=== PATIENT | female | born 1940 | race Caucasian/White ===

== ENCOUNTER → 2016-08-24 | Outpatient (CLI) | payer OTHER ==
[~2016-08-24] MED LIST: Diabeta,Micron2.5 MG PO; EFFEXOR XR75 MG PO; NAPROSYN500 MG PO; PRAVACHOL40 MG PO
[2016-08-24 09:27] LABS: BASO # 0.1 10*3/uL (0.0-0.1); BASO % 0.9 % (0.0-1.0); EOS # 0.3 10*3/uL (0.0-0.4); EOS % 3.3 % (1.0-4.0); HEMATOCRIT 45.6 % (37.0-47.0); HEMOGLOBIN 14.8 g/dl (12.0-16.0); LYMPH # 2.5 10*3/uL (1.3-4.4); LYMPH % 31.2 % (27.0-41.0); MEAN CELL VOLUME 94.2 fl (81.0-99.0); MEAN CORPUSCULAR HGB 30.6 pg (27.0-31.0); MEAN CORPUSCULAR HGB CONC 32.5 g/dl (33.0-37.0); MEAN PLATELET VOLUME 9.8 fl (9.6-12.3); MONO # 0.7 10*3/uL (0.1-1.0); MONO % 8.1 % (3.0-9.0); NEUT # 4.5 10*3/uL (2.3-7.9); NEUT % 56.1 % (47.0-73.0); PLATELET COUNT AUTOMATED 259 10*3/uL (130-400); RED BLOOD COUNT 4.84 10*6/uL (4.10-5.10)
[2016-08-24 10:19] LABS: ALBUMIN 3.7 gm/dl (3.1-4.5); ALKALINE PHOSPHATASE 53 U/L (45-117); BILIRUBIN, DIRECT < 0.1 mg/dL (0.0-0.2); BILIRUBIN, TOTAL 0.4 mg/dl (0.2-1.0); BUN 14 mg/dl (7-24); CARBON DIOXIDE 26 mmol/L (21-32); CHLORIDE 109 mmol/L (98-107); EST GLOM FILT AFRICAN AMERICAN > 60 ml/min; GLUCOSE 156 mg/dL (65-99); PHOSPHOROUS 3.9 mg/dL (2.5-4.9); POTASSIUM 4.5 mmol/L (3.5-5.1); SGOT/AST 19 IU/L (3-35); SGPT/ALT 20 U/L (12-78); SODIUM 143 mmol/L (136-145); TOTAL PROTEIN 7.3 gm/dL (6.4-8.2)
[2016-08-24 10:54] LABS: HEMOGLOBIN A1c 6.6 % (4.8-5.6)
== END | disposition home or self-care (01) ==
LOC: LAB 09:04
PROVIDERS: Internal Medicine
DX: E11.9 Type 2 diabetes mellitus without complications (principal); J44.9 Chronic obstructive pulmonary disease, unspecified; I10 Essential (primary) hypertension

== ENCOUNTER 2016-12-13 15:10 | Emergency (ER) | payer OTHER ==
[~2016-12-13] VITALS: Ht 152.4 cm; Wt 39.9 kg
[2016-12-13 15:18] VITALS: BP 136/74
[2016-12-13] MEDS ORDERED: ALENDRONATE SOD70 M1 PO (15:20)
[2016-12-13] MEDS ORDERED: HYDROCODONE BIT1 T20 PO (15:20)
[2016-12-13] MEDS ORDERED: CITALOPRAM10 MG PO (15:20)
[2016-12-13] MEDS ORDERED: NAPROSYN500 MG PO (15:26)
== END 2016-12-13 15:59 | disposition home or self-care (01) ==
LOC: ED 15:10
DX: S52.501A Unspecified fracture of the lower end of right radius, initial encounter for closed fracture (principal); R03.0 Elevated blood-pressure reading, without diagnosis of hypertension; Z90.710 Acquired absence of both cervix and uterus; Z90.89 Acquired absence of other organs; Z79.899 Other long term (current) drug therapy; W17.89XA Other fall from one level to another, initial encounter; Y93.89 Activity, other specified; Y92.009 Unspecified place in unspecified non-institutional (private) residence as the place of occurrence of the external cause; Y99.9 Unspecified external cause status

== ENCOUNTER → 2017-03-19 | Outpatient (CLI) | payer OTHER ==
[~2017-03-19] MED LIST changes: +ALENDRONATE SOD70 M1 PO; +CITALOPRAM10 MG PO; +HYDROCODONE BIT1 T20 PO
[2017-03-19 10:08] LABS: HEMOGLOBIN A1c 7.7 % (4.8-5.6)
[2017-03-19 10:21] LABS: ALBUMIN 3.5 gm/dl (3.1-4.5); ALKALINE PHOSPHATASE 72 U/L (45-117); BILIRUBIN, DIRECT < 0.1 mg/dL (0.0-0.2); BILIRUBIN, TOTAL 0.3 mg/dl (0.2-1.0); BUN 13 mg/dl (7-24); CARBON DIOXIDE 26 mmol/L (21-32); CHLORIDE 106 mmol/L (98-107); CHOLESTEROL 193 mg/dL (<200); EST GLOM FILT AFRICAN AMERICAN > 60 ml/min; FREE T4 1.16 ng/dl (0.76-1.46); GLUCOSE 173 mg/dL (65-99); HDL CHOLESTEROL 35 mg/dl (40-60); LDL CHOLESTEROL 118 mg/dL (9-159); PHOSPHOROUS 4.7 mg/dL (2.5-4.9); POTASSIUM 3.9 mmol/L (3.5-5.1); SGOT/AST 17 IU/L (3-35); SGPT/ALT 20 U/L (12-78); SODIUM 139 mmol/L (136-145); TOTAL PROTEIN 7.5 gm/dL (6.4-8.2); TRIGLYCERIDES 201 mg/dl (<150); VLDL CHOLESTEROL 40 mg/dL (6-40)
[2017-03-19 10:25] LABS: THYROID STIM HORMONE (HS) 0.327 uIU/ml (0.358-4.75)
[2017-03-19 10:29] LABS: FOLIC ACID 18.26 ng/mL (>5.38)
== END | disposition home or self-care (01) ==
LOC: LAB 09:14
PROVIDERS: Internal Medicine
DX: E11.9 Type 2 diabetes mellitus without complications (principal); R53.83 Other fatigue; E55.9 Vitamin D deficiency, unspecified

== ENCOUNTER 2017-05-26 11:58 | Inpatient (IN) | payer OTHER ==
[~2017-05-26] VITALS: Ht 149.8 cm; Wt 34.2 kg
[2017-05-26] VITALS (7 sets, daily range): BP systolic 110–144; BP diastolic 58–77
[2017-05-26 12:42] LABS: BASO # 0.1 10*3/uL (0.0-0.1); BASO % 0.8 % (0.0-1.0); EOS # 0.1 10*3/uL (0.0-0.4); EOS % 1.7 % (1.0-4.0); HEMATOCRIT 40.6 % (37.0-47.0); HEMOGLOBIN 13.6 g/dl (12.0-16.0); LYMPH # 1.6 10*3/uL (1.3-4.4); LYMPH % 18.7 % (27.0-41.0); MEAN CORPUSCULAR HGB 30.2 pg (27.0-31.0); MEAN CORPUSCULAR HGB CONC 33.5 g/dl (33.0-37.0); MEAN PLATELET VOLUME 9.7 fl (9.6-12.3); MONO # 0.9 10*3/uL (0.1-1.0); MONO % 10.8 % (3.0-9.0); NEUT # 5.6 10*3/uL (2.3-7.9); NEUT % 67.6 % (47.0-73.0); PLATELET COUNT AUTOMATED 270 10*3/uL (130-400); RED BLOOD COUNT 4.51 10*6/uL (4.10-5.10); RED CELL DISTRI WIDTH 14.1 % (0-14.5); WHITE BLOOD COUNT 8.3 10*3/uL (4.8-10.8)
[2017-05-26 12:57] LABS: ALBUMIN 3.5 gm/dl (3.1-4.5); ALKALINE PHOSPHATASE 103 U/L (45-117); BUN 12 mg/dl (7-24); CHLORIDE 99 mmol/L (98-107); CREATININE 0.87 mg/dL (0.55-1.02); LIPASE 171 U/L (73-393); POTASSIUM 4.1 mmol/L (3.5-5.1); SGOT/AST 17 IU/L (3-35); SGPT/ALT 15 U/L (12-78); SODIUM 134 mmol/L (136-145); TOTAL PROTEIN 8.3 gm/dL (6.4-8.2)
[2017-05-26 13:01] LABS: TROPONIN I < 0.015 ng/ml (<0.045)
[2017-05-26 14:14] LABS: BILIRUBIN NEGATIVE (NEGATIVE); BLOOD TRACE-LYSED (NEGATIVE); CLARITY SL CLOUDY (CLEAR); COLOR YELLOW (YELLOW); GLUCOSE TRACE (NEGATIVE); KETONE NEGATIVE (NEGATIVE); LEUKO ESTERASE 2+ (NEGATIVE); NITRITE NEGATIVE (NEGATIVE); SPECIFIC GRAVITY 1.015 (1.005-1.030); UROBILINOGEN 0.2 E.U./dl (0.2-1.0)
[2017-05-26 14:27] LABS: BACTERIA 1+; MUCOUS 1+; WBC 21-30 wbc/hpf (0-5)
--- NOTE | 2017-05-26 15:20 | NUR ---
A 76, admitted to , under the services of NATE Ojeda DO with a diagnosis of UTI, ACUTE RESP FAILURE, HYPOXIA, PNEUMONITIS. Chief complaint is SHORTNESS OF BREATH. Patient arrived via stretcher from ER. Monitor applied. Initial assessment completed. Vital signs taken and recorded. NATE OJEDA DO notified of admission to the unit. Orders received. See assessment for past medical history, medications and allergies. Patient and/or family oriented to unit. [address] visitation policy reviewed. Clothing/patient valuable form completed. DARIUSZ PABLO
--- NOTE | 2017-05-26 15:28 | NUR ---
DARIUSZ RN AT BEDSIDE WITH PATIENT AT THIS TIME.
[2017-05-26] MEDS ORDERED: NAPROSYN500 MG PO (16:00)
[2017-05-26] MEDS ORDERED: NORCO 7.5-3251 EACH PO (16:00)
--- NOTE | 2017-05-26 16:00 | NUR ---
[facility] CALLED; MEDS VERIFIED. BORIS REIS NP NOTIFIED.
--- NOTE | 2017-05-26 19:45 | NUR ---
PT. IS RESTING IN BE COMFORTABLY AT THIS TIME VISITING DAUGHTER WITH DAUGHTER AT BEDSIDE. RESPIRATIONS ARE EASY AND REGULAR, NC CONNECTED DELIVERING 3LPM. CALL LIGHT IS WITHIN REACH, HOB ELEVATED, BED IN LOWEST POSITION, SEE SHIFT ASSESSMENT.
--- NOTE | 2017-05-26 20:01 | NUR ---
PT REFUSED BREATHING TX. PT DOES NOT KNOW WHY SHE IS ON TXS. LUNGS SOUND CLEAR. PT RESTING COMFORTABLY ON 3L NC AT 92%.
--- NOTE | 2017-05-26 21:43 | NUR ---
[facility] GIVEN PER PT. REQUEST FOR GENERALIZED PAIN. CALL LIGHT IS WITHIN REACH AND WILL MONITOR EFFECT.
--- NOTE | 2017-05-26 22:15 | NUR ---
[facility]N [facility] SEEMS TO BE EFFECTIVE, PT. IS SLEEPING COMFORTABLY AT THIS TIME. RESPERS ARE EASY AND REGULAR WITH 3LPM BEING DELIVERED VIA NC. CALL LIGHT IS WITHIN REACH, HOB IS ELEVATED, AND BED IS LOW.
[2017-05-27] VITALS: BP 106/66
[2017-05-27 06:19] LABS: BASO % 0.3 % (0.0-1.0); HEMATOCRIT 37.4 % (37.0-47.0); HEMOGLOBIN 12.2 g/dl (12.0-16.0); LYMPH # 1.2 10*3/uL (1.3-4.4); LYMPH % 33.5 % (27.0-41.0); MEAN CELL VOLUME 90.3 fl (81.0-99.0); MEAN CORPUSCULAR HGB 29.5 pg (27.0-31.0); MEAN CORPUSCULAR HGB CONC 32.6 g/dl (33.0-37.0); MEAN PLATELET VOLUME 9.9 fl (9.6-12.3); MONO # 0.2 10*3/uL (0.1-1.0); MONO % 4.2 % (3.0-9.0); NEUT # 2.2 10*3/uL (2.3-7.9); NEUT % 61.7 % (47.0-73.0); PLATELET COUNT AUTOMATED 231 10*3/uL (130-400); RED BLOOD COUNT 4.14 10*6/uL (4.10-5.10); RED CELL DISTRI WIDTH 14.1 % (0-14.5); WHITE BLOOD COUNT 3.6 10*3/uL (4.8-10.8)
[2017-05-27 06:48] LABS: ALBUMIN 2.6 gm/dl (3.1-4.5); BUN 12 mg/dl (7-24); CHLORIDE 104 mmol/L (98-107); CHOLESTEROL 160 mg/dL (<200); CREATININE 0.69 mg/dL (0.55-1.02); POTASSIUM 4.2 mmol/L (3.5-5.1); SGOT/AST 10 IU/L (3-35); SGPT/ALT 14 U/L (12-78); SODIUM 138 mmol/L (136-145)
[2017-05-27 06:55] LABS: ALKALINE PHOSPHATASE 74 U/L (45-117); FREE T4 1.31 ng/dl (0.76-1.46); HDL CHOLESTEROL 32 mg/dl (40-60); LDL CHOLESTEROL 114 mg/dL (9-159); PHOSPHOROUS 3.3 mg/dL (2.5-4.9); THYROID STIM HORMONE (HS) 0.138 uIU/ml (0.358-4.75); TOTAL PROTEIN 6.6 gm/dL (6.4-8.2); TRIGLYCERIDES 68 mg/dl (<150); VLDL CHOLESTEROL 14 mg/dL (6-40)
[2017-05-27 07:48] LABS: VITAMIN D, 25-HYDROXY 32.9 ng/mL (30-100)
[2017-05-27 08:00] VITALS: BP 97/57
--- NOTE | 2017-05-27 09:41 | NUR ---
NOTIFIED OF OXYGEN DESATING TO 80% WITHOUT SUPPLEMENTAL O2. PT AGITATED AND CURSING AT STAFF THAT SHE WANTS TO GO HOME, DAUGHTER AT BEDSIDE. 02 WENT UP TO 93% WITH 2L VIA NC
--- NOTE | 2017-05-27 10:53 | NUR ---
PT INSISTED ON SIGNING OUT AMA, ALTHOUGH HER OXYGEN SATURATIONS ARE DROPPING WITHOUT SUPPLEMENTAL 02, PT AND DAUGHTER EDUCATED ON RISK OF LEAVING. VOICED UNDERSTANDING AND AGREED TO RETURN TO ER IF THERE ARE ANY PROBLEMS.
--- NOTE | 2017-05-27 10:56 | NUR ---
PT LEFT AMA AND NURSING SUPERVISOR CALIBRATION NOTIFIED
== END 2017-05-27 10:56 | disposition left against medical advice (07) | DRG 871 ==
LOC: ED 11:58 → 4E 14:44 → EDHOLD 14:44 → 4E 14:49
PROVIDERS: Emergency Medicine; Registered Nurse; ADMIT Internal Medicine
DX: A41.9 Sepsis, unspecified organism (principal); J18.9 Pneumonia, unspecified organism; J96.01 Acute respiratory failure with hypoxia; G93.41 Metabolic encephalopathy; E46 Unspecified protein-calorie malnutrition; N39.0 Urinary tract infection, site not specified; M06.9 Rheumatoid arthritis, unspecified; E11.65 Type 2 diabetes mellitus with hyperglycemia; E87.1 Hypo-osmolality and hyponatremia; Z68.1 Body mass index [BMI] 19.9 or less, adult; R31.9 Hematuria, unspecified; Z53.21 Procedure and treatment not carried out due to patient leaving prior to being seen by health care provider; Z60.2 Problems related to living alone; Z90.710 Acquired absence of both cervix and uterus; Z85.3 Personal history of malignant neoplasm of breast; Z85.51 Personal history of malignant neoplasm of bladder; Z92.21 Personal history of antineoplastic chemotherapy; Z92.3 Personal history of irradiation; Z79.899 Other long term (current) drug therapy